=== PATIENT | female | born 1995 | race African-American/Black ===

== ENCOUNTER 2022-11-07 09:25 | Emergency (ER) | payer MEDICAID ==
[~2022-11-07] VITALS: Ht 162.6 cm; Wt 72.6 kg
[2022-11-07 09:27] VITALS: BP 152/92; PULSE 51; RESP 18; TEMP 98; O2SAT 100
[2022-11-07] MEDS ORDERED: IBUP-2218 PO (09:49)
[2022-11-07] MEDS ORDERED: ACET-10509 PO (09:49)
[2022-11-07] MEDS ORDERED: IBUPROFEN 600 MG TAB PO ONE (09:50)
[2022-11-07 09:59] VITALS: BP 130/78; PULSE 60; RESP 19; TEMP 98; O2SAT 100
== END 2022-11-07 10:00 | disposition home or self-care (01) ==
LOC: MED 09:25
DX: S91.154A Open bite of right lesser toe(s) without damage to nail, initial encounter (principal); Z79.899 Other long term (current) drug therapy; W57.XXXA Bitten or stung by nonvenomous insect and other nonvenomous arthropods, initial encounter; Y93.89 Activity, other specified; Y92.89 Other specified places as the place of occurrence of the external cause; Y99.8 Other external cause status
CPT/HCPCS: 99282